=== PATIENT | female | born 1960 | race Caucasian/White ===

== ENCOUNTER 2017-02-15 15:40 | Outpatient (CLI) | payer OTHER | END 2017-02-15 15:41 | disposition home or self-care (01) | LOC: DTY/OP 15:40 | PROVIDERS: ATTEND Surgery | DX: E78.5 Hyperlipidemia, unspecified (principal); G47.30 Sleep apnea, unspecified; I10 Essential (primary) hypertension ==

== ENCOUNTER 2017-04-29 16:37 | Outpatient (CLI) | payer BC ==
[2017-04-29 17:30] LABS: #Basophils 0.1 thou/uL (0.0-0.2); #Lymphocytes 2.4 thou/uL (1.20-3.40); #Monocytes 0.5 thou/uL (0.11-0.59); #Neutrophils 2.1 thou/uL (1.40-6.50); %Basophils 1.1 % (0.0-1.0); %Eosinophils 0.9 % (0.0-10.0); %Lymphocytes 47.2 % (21.0-51.0); %Monocytes 9.3 % (0.0-10.0); %Neutrophils 41.5 % (42.0-75.0); Hemoglobin 14.4 g/dL (12.0-16.0); Mean Corpuscular HGB CONC 33.6 g/dL (32.0-36.0); Mean Corpuscular Hemoglobin 30.2 pg (27.0-31.0); Mean Corpuscular Volume 89.9 fl (81.0-99.0); Mean Platelet Volume 7.7 fL (7.4-10.4); Platelet Count 199 thou/uL (130-400); RBC Distribution Width 11.7 % (11.5-14.5); Red Blood Cell (RBC) Count 4.77 mill/uL (4.20-5.40)
[2017-04-29 17:51] LABS: ALT (SGPT) 24 U/L (8-55); AST (SGOT) 23 U/L (5-34); Albumin 4.5 g/dL (3.5-5.0); Alkaline Phosphatase 85 U/L (40-150); Anion Gap 10 mmol/L (10-20); BUN (Urea Nitrogen) 10 mg/dL (9.8-20.1); Bilirubin, Direct 0.1 mg/dL (0.1-0.3); Bilirubin, Total 0.3 mg/dL (0.2-1.2); Calc. Creatinine Clearance 0 mL/min (70-130); Calcium 9.4 mg/dL (7.8-10.44); Carbon Dioxide 29 mmol/L (22-29); Chloride 104 mmol/L (98-107); Estimated GFR-MDRD 76; Globulin 2.7 g/dL (2.4-3.5); Glucose 72 mg/dL (70-105); Potassium 3.7 mmol/L (3.5-5.1); Protein, Total 7.2 g/dL (6.0-8.3); Sodium 139 mmol/L (136-145)
--- NOTE | 2017-04-29 18:15 | RAD ---
TWO VIEW CHEST 04/29/17 HISTORY: Preoperative evaluation. Lungs are clear. Heart and mediastinum appear normal. Osseous structures are unremarkable. IMPRESSION: No acute abnormality. POS: [facility]
== END 2017-04-29 16:38 | disposition home or self-care (01) ==
LOC: LABBT 16:37
PROVIDERS: ATTEND Surgery
DX: Z01.818 Encounter for other preprocedural examination (principal); E66.01 Morbid (severe) obesity due to excess calories
CPT/HCPCS: 71046; 80053; 80076; 83036; 85025; 93005; 93010

== ENCOUNTER 2017-05-12 05:53 | Inpatient (IN) | payer BC ==
[2017-04-29 16:55] VITALS: BMI 35.6
[2017-05-12] MEDS ORDERED: Bupivacaine/Epinephrine 0.25% 30 ML VIAL ONE (06:33)
[2017-05-12] MEDS ORDERED: CEFAZOLIN/Water 2 GM/20 ML SYRINGE ONE (06:59)
[2017-05-12] MEDS ORDERED: Heparin 5,000 UNITS/ML VIAL ONE (06:59)
[2017-05-12] MEDS ORDERED: Midazolam HCl 2 mg/2 ml Vial ONE ×2 (07:10→07:11)
[2017-05-12] MEDS ORDERED: Lidocaine 1% (PF) 30 ML VIAL ONE (07:11)
[2017-05-12] MEDS ORDERED: Fentanyl 250 MCG/5 ML VIAL ONE (07:11)
[2017-05-12] MEDS ORDERED: diphenhydrAMINE 50 MG/ML VIAL IVP PRN ×2 (07:16→08:41)
[2017-05-12] MEDS ORDERED: Promethazine HCl 25 MG/ML VIAL SLOW IVP PRN (07:16)
[2017-05-12] MEDS ORDERED: Meperidine HCl/PF 25 MG/ML VIAL SLOW IVP PRN (07:16)
[2017-05-12] MEDS ORDERED: diphenhydrAMINE 50 MG/ML VIAL IM PRN (07:16)
[2017-05-12] MEDS ORDERED: Promethazine HCl 25 MG/ML VIAL IM PRN ×3 (07:16→08:41)
[2017-05-12] MEDS ORDERED: Zolpidem Tartrate 5 MG TAB PO PRN (07:16)
[2017-05-12] MEDS ORDERED: diphenhydrAMINE 25 MG CAP PO PRN (07:16)
[2017-05-12] MEDS ORDERED: HYDROmorphone 10 mg/100 ml CADD IVPB PRN (07:16)
[2017-05-12] MEDS ORDERED: Ondansetron HCl/PF 4 MG/2 ML Vial IVP PRN ×2 (07:16)
[2017-05-12] MEDS ORDERED: HYDROmorphone 2 MG/ML VIAL SLOW IVP PRN (07:16)
[2017-05-12] MEDS ORDERED: Naloxone HCl 0.4 mg/ml Vial IV PRN (07:16)
[2017-05-12] MEDS ORDERED: Communication Order-Pharmacy FS SCH (07:30)
[2017-05-12] MEDS ORDERED: hydrALAZINE 20 MG/ML VIAL SLOW IVP PRN (08:41)
[2017-05-12] MEDS ORDERED: Dextrose 50% Abboject 50 ML SYRINGE SLOW IVP PRN (08:41)
[2017-05-12] MEDS ORDERED: Dextrose 5% in Water 1,000 ML IV PRN (08:41)
[2017-05-12] MEDS ORDERED: Promethazine HCl 25 MG/ML VIAL ONE (10:05)
--- NOTE | 2017-05-12 11:09 | OP ---
DATE OF PROCEDURE: 05/12/2017 PREOPERATIVE DIAGNOSIS: Morbid obesity. SURGEON: Alejandro Bruce M.D. PROCEDURE: Laparoscopic sleeve gastrectomy, esophagogastroscopy. INDICATIONS: The patient is a 56-year-old female, morbidly obese, who has attempted multiple weight loss programs without success. FINDINGS: A 38 Romanian bougie used. PROCEDURE IN DETAIL: After informed consent was obtained, the patient was taken to the operating david m and given general endotracheal anesthesia. She was placed in the supine position. The abdomen was prepped and draped in usual fashion. Local anesthesia infiltrated subcutaneously and deep. A 12 mm incision was performed approximately 8 inches below the xiphoid slightly to the left. Veress needle inserted. Drop test performed. Pneumoperitoneum was created to a volume of 2 liters of carbon diox lizzeth. Then utilizing a bladeless 12 mm trocar and 0 degree laparoscope direct visual entry in the abd ominal cavity was performed. Pneumoperitoneum was then created to a pressure of 15 mmHg and the patti ent placed in steep reverse Trendelenburg position. Nathansen liver retractor inserted. Left lobe o f liver retracted superiorly. The pylorus identified, a 12 mm port placed on the right, beneath it t wo 12s placed left subcostal. The omentum was taken off the greater curvature utilizing the LigaSure 5 cm from the pylorus. The short gastrics divided with the LigaSure and the left crura defined with the LigaSure. The 38-Romanian bougie inserted and directed into the antrum. The linear 60 mm green l oad stapler used to divide the antrum to the bougie, gold load along the bougie, and a series of blue s through the angle of His. Intraoperative endoscopy was performed. The video endoscope inserted un lilly direct vision and advanced into the sleeve. The staple line inspected. There was no bleeding. Staple line then tested by inflating the new stomach with pressurized air under water. There was no air leak. Stomach decompressed. Scope removed. The remnant stomach removed from the abdomen throug h the left lateral port site. The fascia closed with 0 Vicryl suture and the GraNee needle. Trocars and retractors removed. The skin closed with interrupted 4-0 Rapide. Dermabond applied. The patie nt tolerated the procedure well and was transferred to recovery in good condition. Sponge and needle count verified correct x2.
[2017-05-12] MEDS: Pantoprazole 40 MG VIAL IVP SCH (11:26)
[2017-05-12] MEDS: D5 1/2 NS w/20 mEq KCL 1,000 ML IV SCH (11:28)
[2017-05-12] MEDS: CEFAZOLIN/Water 2 GM/20 ML SYRINGE SLOW IVP SCH ×2 (14:50→22:24)
[2017-05-12] MEDS: Acetaminophen 1,000 MG in Premix Bag 1 BAG IVPB SCH ×2 (14:50→20:14)
[2017-05-12] MEDS: Ketorolac Tromethamine 30 MG/ML VIAL IVP SCH ×2 (14:51→20:14)
[2017-05-12] MEDS ORDERED: Sodium Chloride 0.9% 1,000 ML IV SCH (15:15)
[2017-05-12] MEDS ORDERED: Dexamethasone 20 MG/5 ML VIAL ONE (15:43)
[2017-05-12] MEDS ORDERED: Lidocaine 1% PF 5 ML VIAL ONE (15:43)
[2017-05-12] MEDS ORDERED: Ketorolac Tromethamine 30 MG/ML VIAL ONE (15:43)
[2017-05-12] MEDS ORDERED: ePHEDrine/0.9% NaCl/PF SYRINGE 50 mg/10 ml ONE (15:43)
[2017-05-12] MEDS ORDERED: Glycopyrrolate 0.2 MG/ML 5 ML SYRINGE ONE (15:43)
[2017-05-12] MEDS ORDERED: Propofol 200 MG/20 ML VIAL ONE (15:43)
[2017-05-12] MEDS ORDERED: Ondansetron HCl/PF 4 MG/2 ML Vial ONE (15:43)
[2017-05-12 15:44] LABS: Hemoglobin 12.6 g/dL (12.0-16.0); Platelet Count 186 thou/uL (130-400)
[2017-05-12] MEDS ORDERED: Sodium Chloride 0.9% 500 ML IV SCH (18:15)
[2017-05-12 19:55] LABS: Hemoglobin 12.2 g/dL (12.0-16.0)
[2017-05-12] MEDS: Ondansetron HCl/PF 4 MG/2 ML Vial IVP PRN (20:23)
[2017-05-13] MEDS: D5 1/2 NS w/20 mEq KCL 1,000 ML IV SCH ×2 (01:15→01:16)
[2017-05-13] MEDS: Acetaminophen 1,000 MG in Premix Bag 1 BAG IVPB SCH ×2 (02:33→09:27)
[2017-05-13] MEDS: Ketorolac Tromethamine 30 MG/ML VIAL IVP SCH ×2 (02:33→09:51)
[2017-05-13 04:32] LABS: #Lymphocytes 1.2 thou/uL (1.20-3.40); #Monocytes 0.6 thou/uL (0.11-0.59); #Neutrophils 6.1 thou/uL (1.40-6.50); %Basophils 0.1 % (0.0-1.0); %Eosinophils 0.1 % (0.0-10.0); %Lymphocytes 14.9 % (21.0-51.0); %Monocytes 7.7 % (0.0-10.0); %Neutrophils 77.3 % (42.0-75.0); Hemoglobin 11.1 g/dL (12.0-16.0); Mean Corpuscular HGB CONC 33.4 g/dL (32.0-36.0); Mean Corpuscular Hemoglobin 29.7 pg (27.0-31.0); Mean Platelet Volume 7.1 fL (7.4-10.4); Platelet Count 192 thou/uL (130-400); RBC Distribution Width 11.7 % (11.5-14.5); Red Blood Cell (RBC) Count 3.72 mill/uL (4.20-5.40); White Blood Cell (WBC) Count 7.9 thou/uL (4.8-10.8)
[2017-05-13 04:42] LABS: Anion Gap 9 mmol/L (10-20); BUN (Urea Nitrogen) 14 mg/dL (9.8-20.1); Calc. Creatinine Clearance 123 mL/min (70-130); Calcium 8.1 mg/dL (7.8-10.44); Carbon Dioxide 23 mmol/L (22-29); Chloride 107 mmol/L (98-107); Estimated GFR-MDRD 79; Glucose 104 mg/dL (70-105); Potassium 4.3 mmol/L (3.5-5.1); Sodium 135 mmol/L (136-145)
[2017-05-13] MEDS ORDERED: Enoxaparin Sodium 40 MG/0.4 ML SYRINGE SC SCH (06:00)
[2017-05-13] MEDS ORDERED: Hydrocodone-Acetamin 15 ML UDCUP PO PRN (08:41)
--- NOTE | 2017-05-13 09:43 | RAD ---
GASTROGRAFIN SWALLOW: HISTORY: Postop day one from bariatric surgery. COMPARISON: None. FINDINGS: The patient was administered 15 mL of Gastrografin. The Gastrografin passes from the esophagus into the stomach and into the small bowel without any delay or difficulty. No leak or extravasation. IMPRESSION: No leak or extravasation. POS: [facility]
[2017-05-13] MEDS: Ondansetron HCl/PF 4 MG/2 ML Vial IVP PRN (09:50)
[2017-05-13] MEDS: Pantoprazole 40 MG VIAL IVP SCH (09:50)
[2017-05-13 11:43] VITALS: BP 103/60; TEMP 98.7
--- NOTE | 2017-05-13 13:33 | DIS ---
DISCHARGE DIAGNOSIS: Morbid obesity. PROCEDURES DURING ADMISSION: Laparoscopic sleeve gastrectomy, intraoperative esophagogastroscopy, an d postoperative Gastrografin swallow. HOSPITAL COURSE: The patient was admitted, taken to the operating room where she underwent sleeve ga strectomy. Postoperatively, she had several episodes of near syncope and hypotension. This seemed t o respond well to fluid boluses. We have been followed her hemoglobin and hematocrit and was not a s ignificant drop. This morning, she is feeling a lot better and she tells me that this is common for her when she has a stomach bug. She had an x-ray that was fine. She is tolerating liquids, so she i s discharged home off her antihypertensives in good condition on hydrocodone and Zofran. She will fo llow up with me in 2 weeks.
[2017-05-14] MEDS ORDERED: Enoxaparin Sodium 40 MG/0.4 ML SYRINGE SC SCH (09:00)
== END 2017-05-13 11:50 | disposition home or self-care (01) | DRG 621 ==
LOC: SDC 05:53 → SURG A 10:10 → EDSTATUS 17:00
PROVIDERS: ADMIT Surgery; ATTEND Surgery
PROC: 0DB64Z3 Excision of Stomach, Percutaneous Endoscopic Approach, Vertical (ICD-10-PCS; principal; 2017-05-12)
DX: E66.01 Morbid (severe) obesity due to excess calories (principal); I10 Essential (primary) hypertension; Z68.35 Body mass index [BMI] 35.0-35.9, adult; I95.81 Postprocedural hypotension
CPT/HCPCS: 36415; 74241; 80048; 85014; 85018; 85025; 85049; 88307; 88312; A4216; C9113; J0131; J1100; J1644; J1885; J2001; J2250; J2405; J2550; J2704; J3010

== ENCOUNTER 2017-06-21 11:34 | Emergency (ER) | payer BC ==
[2017-06-21 12:56] LABS: #Lymphocytes 0.7 thou/uL (1.20-3.40); #Monocytes 0.2 thou/uL (0.11-0.59); #Neutrophils 1.4 thou/uL (1.40-6.50); %Basophils 0.8 % (0.0-1.0); %Eosinophils 0.4 % (0.0-10.0); %Lymphocytes 31.8 % (21.0-51.0); %Monocytes 9.3 % (0.0-10.0); %Neutrophils 57.7 % (42.0-75.0); Hemoglobin 15.2 g/dL (12.0-16.0); Mean Corpuscular HGB CONC 32.5 g/dL (32.0-36.0); Mean Corpuscular Hemoglobin 28.7 pg (27.0-31.0); Mean Corpuscular Volume 88.4 fl (81.0-99.0); Platelet Count 152 thou/uL (130-400); RBC Distribution Width 12.9 % (11.5-14.5); Red Blood Cell (RBC) Count 5.29 mill/uL (4.20-5.40); White Blood Cell (WBC) Count 2.3 thou/uL (4.8-10.8)
[2017-06-21 13:11] LABS: ALT (SGPT) 27 U/L (8-55); AST (SGOT) 24 U/L (5-34); Albumin 4.2 g/dL (3.5-5.0); Alkaline Phosphatase 63 U/L (40-150); Anion Gap 14 mmol/L (10-20); BUN (Urea Nitrogen) 15 mg/dL (9.8-20.1); Bilirubin, Total 0.5 mg/dL (0.2-1.2); Calc. Creatinine Clearance 0 mL/min (70-130); Calcium 9.6 mg/dL (7.8-10.44); Carbon Dioxide 22 mmol/L (22-29); Chloride 107 mmol/L (98-107); Estimated GFR-MDRD 79; Glucose 96 mg/dL (70-105); Lipase 50 U/L (8-78); Potassium 3.6 mmol/L (3.5-5.1); Protein, Total 7.2 g/dL (6.0-8.3); Sodium 139 mmol/L (136-145)
[2017-06-21 14:59] LABS: Bilirubin Moderate (Negative); Blood, Urine Negative (Negative); Clarity Slightly Cloudy (Clear); Glucose, Urine (Dipstick) Negative (Negative); Leukocyte Negative (Negative); Nitrite Negative (Negative); Protein, Urine (Dipstick) 30 mg/dL (Neg-Trace); Urobilinogen 0.2 mg/dL (0.2-1.0)
[2017-06-21 15:07] LABS: Bacteria/HPF Rare-Few HPF (None Seen); Hyaline Casts/LPF 0-3 HYALINE CAST LPF (0-3 Hyaline); RBC/HPF 0-3 HPF (0-3); Squamous Epithelial 0-3 HPF (0-3)
== END 2017-06-21 15:18 | disposition home or self-care (01) ==
LOC: SCSER 11:34
DX: K52.9 Noninfective gastroenteritis and colitis, unspecified (principal); E03.9 Hypothyroidism, unspecified; I10 Essential (primary) hypertension; F41.9 Anxiety disorder, unspecified; Z79.899 Other long term (current) drug therapy
CPT/HCPCS: 80053; 81003; 81015; 83690; 85025; 96360; 96361

== ENCOUNTER 2017-10-21 19:30 | Outpatient (CLI) | payer BC | END 2017-10-21 19:31 | disposition home or self-care (01) | LOC: SLEEPLAB 19:30 | PROVIDERS: ATTEND Surgery | DX: G47.33 Obstructive sleep apnea (adult) (pediatric) (principal); R53.83 Other fatigue; G47.00 Insomnia, unspecified; R06.83 Snoring; G47.10 Hypersomnia, unspecified; F41.9 Anxiety disorder, unspecified; Z68.27 Body mass index [BMI] 27.0-27.9, adult; R63.4 Abnormal weight loss | CPT/HCPCS: 95811 ==

== ENCOUNTER 2017-11-21 07:55 | Outpatient (CLI) | payer BC ==
--- NOTE | 2017-11-21 10:20 | ULT ---
ABDOMEN ULTRASOUND: HISTORY: Abnormal serum levels. COMPARISON: None. TECHNIQUE: Utilizing a multihertz transducer, sonographic imaging of the abdomen was performed in the longitudin al and transverse plane. FINDINGS: The head of the pancreas has a normal echotexture. The remainder of the pancreas is obscured by leon l gas. Visualized aorta and IVC have a normal appearance. Heterogeneous appearance of the liver may be due to hepatic steatosis or hepatocellular disease. Sub sequent evaluation for hepatic masses and intrahepatic biliary dilatation is limited. The contour of the hepatic margin is maintained. The right hepatic lobe measures 15.1 cm. Main portal vein is patent. Appropriate directional flow. Common bile duct diameter is 0.3 cm. No sonographic evidence of cholelithiasis, gallbladder wall thickening, or pericholecystic fluid. Ne gative Johnson's sign. Bilaterally, no hydronephrosis. Mild right renal cortical thinning. The right kidney measures 4.8 x 5.1 x 9.2 cm. The left kidney measures 5.9 x 5.4 x 10.2 cm. The spleen has a normal echotexture measuring 10.8 cm in maximum dimension. IMPRESSION: Heterogeneous appearance of the liver may be due to hepatic steatosis or hepatocellular disease. Cor relate clinically. POS: [facility]
== END 2017-11-21 07:56 | disposition home or self-care (01) ==
LOC: SCSULT 07:55
PROVIDERS: ATTEND Family Medicine
DX: R74.8 Abnormal levels of other serum enzymes (principal)
CPT/HCPCS: 76700

== ENCOUNTER 2018-09-15 16:11 | Outpatient (CLI) | payer BC ==
--- NOTE | 2018-09-15 17:51 | RAD ---
PA VIEW OF THE CHEST WITH THREE VIEWS OF THE LEFT CHEST WALL: 09/15/18 INDICATION: History of fall with anterior chest pain with pain predominantly underneath the left breast. FINDINGS: The lungs are clear. Heart size is normal. No pleural effusion or pneumothorax is evident. No displaced left sided rib fractures evident. Surgical clips are seen within the left upper quadrant of the abdomen. IMPRESSION: No displaced left sided rib fractures. No pneumothorax. POS: [facility]
== END 2018-09-15 16:12 | disposition home or self-care (01) ==
LOC: SCSRAD 16:11
PROVIDERS: ATTEND Physician Assistant Medical
DX: R07.81 Pleurodynia (principal); S22.42XA Multiple fractures of ribs, left side, initial encounter for closed fracture

== ENCOUNTER 2018-10-18 15:22 | Outpatient (CLI) | payer BC ==
--- NOTE | 2018-10-18 16:34 | BD ---
Exam: DEXA Bone Density 10/18/18 PROVIDED CLINICAL HISTORY: Postmenopausal screening. FINDINGS: Lumbar Spine: BMD (g/cm2) T-SCORE L1 0.806 -1.7 L2 0.906 -1.1 L3 1.032 -0.5 L4 1.085 0.2 L1-L4 0.977 -0.6 Femoral Neck: 0.701 -1.3 Total Femur: 0.913 -0.2 Ten year fracture risk: Major osteoporotic fracture: 7%. Hip fracture: 0.5%. IMPRESSION: Calculated bone mineral density meets WHO criteria for osteopenia in the left femoral neck and places the patient at increased risk for fracture. POS: [facility]
== END 2018-10-18 15:23 | disposition home or self-care (01) ==
LOC: BICMAMMO 15:22
PROVIDERS: ATTEND Family Medicine
DX: Z13.820 Encounter for screening for osteoporosis (principal); M85.852 Other specified disorders of bone density and structure, left thigh
CPT/HCPCS: 77080

== ENCOUNTER 2018-11-23 08:27 | Outpatient (CLI) | payer BC ==
--- NOTE | 2018-11-23 17:57 | CT ---
CT Stone Protocol: 11/23/2018 12:00 AM HISTORY: Left flank pain for 4 days and gross hematuria COMPARISON: 12/20/2010 TECHNIQUE: Multiple contiguous axial images were obtained and a CT of the abdomen and pelvis without IV contrast . Coronal and sagittal reformats were performed. FINDINGS: This examination is limited for the evaluation of solid organs and vascular structures due to the lac k of intravenous contrast. Lower Chest: within normal limits. Abdomen: Liver: within normal limits. Bile Ducts: Normal caliber. Gallbladder: No calcified gallstones. Normal caliber wall. Pancreas: within normal limits. Spleen: within normal limits. Adrenals: within normal limits. Kidneys: Bilateral nonobstructing calcifications measuring up to 3 mm in size. Pelvis: Reproductive Organs: Status post hysterectomy. Ureters: within normal limits. Bladder: within normal limits. Bowel: Normal caliber. Status post gastric sleeve procedure. Normal appendix. Mesenteric Lymph Nodes: No enlarged mesenteric lymph nodes. Peritoneum: No ascites or free air, no fluid collection. Vessels: Atherosclerotic calcifications in the aorta Retroperitoneum: within normal limits. Abdominal Wall: within normal limits. Bones: Degenerative changes in the spine. IMPRESSION: Bilateral nonobstructing kidney stones with have increased in size and number compared to the prior e xam.
== END 2018-11-23 08:28 | disposition home or self-care (01) ==
LOC: SCSCT 08:27
PROVIDERS: ATTEND Family Medicine
DX: R31.0 Gross hematuria (principal); R10.9 Unspecified abdominal pain; N20.0 Calculus of kidney
CPT/HCPCS: 74176

== ENCOUNTER 2019-05-25 11:10 | Outpatient (CLI) | payer BC ==
--- NOTE | 2019-05-25 13:51 | ULT ---
RENAL ULTRASOUND: INDICATION: Renal stone. FINDINGS: Both kidneys appear unremarkable. No hydronephrosis. Both kidneys measure approximately 9 cm in bird gth. No mass lesion or cystic lesion. Urinary bladder is mildly distended and unremarkable. The postvoid volume is recorded at 17 cc. IMPRESSION: Unremarkable renal ultrasound exam. POS: [facility]
== END 2019-05-25 11:11 | disposition home or self-care (01) ==
LOC: SCSULT 11:10
PROVIDERS: ATTEND Urology
DX: N20.0 Calculus of kidney (principal)
CPT/HCPCS: 76770

== ENCOUNTER 2021-09-24 11:18 | Outpatient (CLI) | payer BC | END 2021-09-24 11:19 | disposition home or self-care (01) | LOC: BICMAMMO 11:18 | PROVIDERS: ATTEND Student in an Organized Health Care Education/Training Program | DX: Z12.31 Encounter for screening mammogram for malignant neoplasm of breast (principal) | CPT/HCPCS: 77063; 77067 ==

== ENCOUNTER 2023-09-27 15:24 | Outpatient (CLI) | payer BC | END 2023-09-27 15:25 | disposition home or self-care (01) | LOC: BICRAD 15:24 | PROVIDERS: ATTEND Internal Medicine | DX: M79.641 Pain in right hand (principal); M79.642 Pain in left hand; M19.042 Primary osteoarthritis, left hand ==

== ENCOUNTER → 2024-02-01 | Outpatient (CLI) | payer BC | LOC: BICRAD 14:10 | PROVIDERS: ATTEND Nurse Practitioner Family | DX: M25.561 Pain in right knee (principal); M17.11 Unilateral primary osteoarthritis, right knee ==